=== PATIENT | female | born 1950 | race Caucasian/White ===

== ENCOUNTER 2017-04-23 09:53 | Emergency (ER) | payer MEDICARE, MEDICAID ==
--- NOTE | 2017-04-23 10:01 | Emergency Department Record ---
History of Present Illness - General Chief Complaint: Chest Pain Stated Complaint: CHEST PAIN Time Seen by Provider: 04/23/17 09:54 Source: Patient Mode of Arrival: Ambulatory Limitations: No limitations - History of Present Illness Initial Comments: 66 yo female [facility] from [facility] family [facility] with concerns about her blood pressure and recent onset of chest pain. Today's visit was a scheduled routine visit. She told her provider that she has been having the left chest pain over the last one week. She has noted the pain with activity or exertion at times. No syncope. No history of CAD. She has a history of rheumatic fever. She last saw a entertainer & comic several years ago and does not recall who they were. No pain with inspiration. The pain does not radiate to the back. PCP [facility]. Complaint: Chest pain -: Week(s) (1) Onset: During exertion, During rest Pain Location: Left chest Pain Radiation: LUE Severity: Moderate Quality: Aching Consistency: Intermittent Improves With: Rest Worsens With: Exertion Context: Other Other Symptoms: Burping Treatments Prior to Arrival: None - Related Data Allergies Allergy/AdvReac Type Severity Reaction Status Date / Time levofloxacin [From Levaquin] Allergy Severe SWELLING Verified 04/23/17 10:01 (GENERAL) bupropion HCl Allergy Intermediate HIVES Verified 04/23/17 10:01 [From Wellbutrin] Sulfa (Sulfonamide Allergy Mild NAUSEA AND Verified 04/23/17 10:01 Antibiotics) VOMITING Penicillins Allergy Unknown DIARRHEA & Verified 04/23/17 10:01 HIVES acetaminophen [From Tylenol] AdvReac Mild VOMITING Verified 04/23/17 10:01 aspirin AdvReac Mild VOMITING Verified 04/23/17 10:01 hydroxyzine HCl AdvReac Mild SHAKEY Verified 04/23/17 10:01 [From Vistaril] hydroxyzine pamoate AdvReac Mild SHAKEY Verified 04/23/17 10:01 [From Vistaril] lisinopril AdvReac Mild dizziness, Verified 04/23/17 10:01 nausea, impaired balance paroxetine HCl [From Paxil] AdvReac Mild NAUSEA Verified 04/23/17 10:01 Review of Systems Constitutional: Denies: Chills, Fever, Malaise, Weakness Eyes: Denies: Eye discharge, Eye pain, Photophobia, Vision change ENT: Denies: Congestion, Throat pain Respiratory: Reports: Dyspnea. Denies: Cough, Hemoptysis, Stridor, Wheezes Cardiovascular: Reports: Chest pain, Edema (at times, comes and goes). Denies: Arrhythmia, Palpitations, Syncope Endocrine: Denies: Polydipsia, Polyuria Gastrointestinal: Denies: Abdominal pain, Diarrhea, Nausea, Vomiting Genitourinary: Denies: Dysuria, Urgency Musculoskeletal: Denies: Arthralgia, Back pain, Joint swelling, Myalgia Skin: Denies: Bruising, Change in color, Rash Neurological: Denies: Confusion, Headache, Numbness, Weakness Psychiatric: Denies: Anxiety Hematological/Lymphatic: Denies: Blood Clots, Easy bleeding, Easy bruising, Swollen glands Past Medical History - SOCIAL HISTORY Smoking Status: Never smoker - RESPIRATORY Hx Respiratory Disorders: No - CARDIOVASCULAR Hx Cardio Disorders: No - NEURO Hx Neuro Disorders: Yes Hx of Migraines: Yes - GI Hx GI Disorders: Yes Hx Diverticulitis: Yes Hx Reflux: Yes Hx Nausea/Vomiting: Yes (nausea) Hx of Polyps: Yes - Hx Genitourinary Disorders: No - ENDOCRINE Hx Endocrine Disorders: No - MUSCULOSKELETAL Hx Musculoskeletal Disorders: No - PSYCH Hx Psych Problems: No - HEMATOLOGY/ONCOLOGY Hx Hematology/Oncology Disorders: No Family Medical History Hx Heart Disease: Father, Mother Hx HTN: Father, Mother Physical Exam - General General Appearance: Alert, Oriented x3, Cooperative, No acute distress Limitations: No limitations - Head Head exam: Normal inspection - Eye Eye exam: Normal appearance, PERRL. negative: Conjunctival injection, Periorbital swelling - ENT ENT exam: Normal exam, Mucous membranes moist Ear exam: Normal external inspection Nasal Exam: Normal inspection Mouth exam: Normal external inspection Teeth exam: Normal inspection - Neck Neck exam: Normal inspection, Full ROM. negative: Tenderness - Respiratory Respiratory exam: Normal lung sounds bilaterally. negative: Respiratory distress, Rhonchi, Stridor, Wheezes - Cardiovascular Cardiovascular Exam: Regular rate, Normal rhythm, Normal heart sounds, Systolic murmur (soft best over Aortic area) Peripheral Pulses: 2+: Radial (R), Radial (L) - GI/Abdominal GI/Abdominal exam: Soft. negative: Tenderness - Rectal Rectal exam: Deferred - exam: Deferred - Extremities Extremities exam: Normal inspection, Full ROM, Normal capillary refill. negative: Pedal edema, Tenderness - Back Back exam: Reports: Normal inspection, Full ROM. Denies: Muscle spasm, Rash noted, Tenderness - Neurological Neurological exam: Alert, Normal gait, Oriented X3 - Psychiatric Psychiatric exam: Normal affect, Normal mood - Skin Skin exam: Dry, Intact, Normal color, Warm Course - Reevaluation(s) Reevaluation #1: EKG 09:55 NSR LBBB rate of 78, [place] L, ST changes CW LBBBB no changes form 07/1404/23/17 10:00 Refused Aspirin due to allergy 04/23/17 11:19 Reevaluation #2: The CBC,CMP,Troponin, and BNP were negative. 04/23/17 10:38 04/23/17 11:08 CXR report reviewed. NAD. No changes from prior . Recommend FU CXR 1 year. Pt informed Reevaluation #3: I discussed the results with the patient. I recommended admission for cardiology consultation and ECHO given her chest pain, history of RF. She refuses admission. She has an appointment tomorrow that she is not willing to miss. I explained there is serious risk with leaving without completed testing. Risks such as , injury, heart attack, other causes of chest pain that can still be evaluated. She declined and understands my concerns. I explained signing out AMA. She agrees with signing out AMA. I spoke with her PCP Carla Flores. She did place a STAT referral for out patient cardiology follow up. The patient is in agreement with this plan but still unwilling to be admitted today under any conditions. 04/23/17 11:14 Medical Decision Making - Lab Data Result diagrams: 04/23/17 10:04 04/23/17 10:04 Disposition Disposition: Discharge Clinical Impression: Chest pain Qualifiers: Chest pain type: unspecified Qualified Code(s): R07.9 - Chest pain, unspecified Disposition: Against Medical Advice Condition: (2) Stable Instructions: Chest Pain (ED), Against Medical Advice (ED) Additional Instructions: Return or go to an ER immediately if you have any return of chest pain You are being referred for a Cardiology Consult as soon as possible Return anytime to complete your testing You are signing out AMA today Forms: Patient Portal Access Time of Disposition: 11:19 Quality - Quality Measures Quality Measures: N/A - Blood Pressure Screening View Details: Yes Blood Pressure Classification: Hypertensive Reading Systolic Measurement: 197 Diastolic Measurement: 112 Screening for High Blood Pressure: < Pre-Hypertensive BP, F/U Documented > [ [id number]] Pre-Hypertensive Follow-up Interventions: Referral to alternative/primary care provider.
[2017-04-23 10:08] LABS: BASO % 0.3 % (0-6); EOS % 0.9 % (0-6); GRAN % 60.3 % (47-80); HEMATOCRIT 41.1 % (35.0-47.0); HEMOGLOBIN 13.4 gm/dl (11.6-16.0); LYMPH % 29.5 % (16-45); MEAN CELL VOLUME 89.5 fl (81-97); MEAN CORPUSCULAR HEMOGLOBIN 29.2 pg (27-33); MEAN CORPUSCULAR HGB CONC 32.6 g/dl (32-36); MEAN PLATELET VOLUME 9.7 fl (7.4-10.4); PLATELET COUNT 273 K/uL (130-400); RED BLOOD COUNT 4.59 M/uL (3.80-5.40); RED CELL DISTRIBUTION WIDTH 13.8 % (11.5-14.5); WHITE BLOOD COUNT W/O DIFF 7.5 K/uL (4.2-12.2)
[2017-04-23 10:22] LABS: ALB/GLOB RATIO 1.3 (1.1-1.8); ALBUMIN 4.5 gm/dL (3.5-5.0); ALKALINE PHOSPHATASE 78 U/L (38-126); ALT/SGPT 38 U/L (9-52); ANION GAP 12.9 (7-16); AST/SGOT 20 U/L (14-36); BILIRUBIN,TOTAL 0.89 mg/dL (0.2-1.3); BLOOD UREA NITROGEN 11 mg/dL (7-17); CARBON DIOXIDE 27.1 mmol/L (22-30); CREATINE PHOSPHOKINASE 53 U/L (30-135); CREATININE 0.8 mg/dL (0.52-1.04); EST GLOMERULAR FILTRATION RATE > 60 ml/min; GLUCOSE,RANDOM 100 mg/dL (70-110); INR 0.98; PARTIAL THROMBOPLASTIN TIME 25.1 SECONDS (24.5-39.1); PROTHROMBIN TIME (PATIENT) 10.6 SECONDS (9.5-12.1); TOTAL PROTEIN 8.1 gm/dL (6.3-8.2)
[2017-04-23 10:34] LABS: CKMB 0.3 ug/L (0-6)
[2017-04-23 10:35] LABS: TROPONIN I < 0.012 ng/mL (0.00-0.034)
--- NOTE | 2017-04-24 10:32 | RADIOLOGY REPORT ---
EXAM: CHEST, TWO VIEWS HISTORY: LEFT SIDED CHEST PAIN FOR A WEEK. TECHNIQUE: PA and lateral views of the chest were obtained. Comparison: PA chest 04/17/16. FINDINGS: The heart size is within normal limits. The lungs appear expanded with no acute infiltrate seen. No pleural effusion or pneumothorax evident. Previously noted small granuloma at the right base is probably still present, but obscured by the dome of the hemidiaphragm on the current study. Small pleural based nodular density left apex medially also present previously, but partially obscured by the medial end of the left clavicle on the prior exam. IMPRESSION: STABLE HEART SIZE. NO ACUTE INFILTRATE EVIDENT. SMALL GRANULOMA RIGHT BASE BEFORE AND SMALL PLEURAL BASED NODULAR DENSITY LEFT APEX MEDIALLY ALSO PRESENT PREVIOUSLY. RECOMMEND FOLLOW-UP CHEST X-RAY IN A YEAR'S TIME. JOB NUMBER: [id number] MTDD
== END 2017-04-23 11:33 | disposition left against medical advice (07) ==
LOC: ER 09:53
DX: R07.89 Other chest pain (principal)
CPT/HCPCS: 71020; 80053; 82550; 82553; 83880; 84484; 85025; 85610; 85730; 93005; 93010; 99284

== ENCOUNTER 2019-03-01 10:35 | Observation (INO) | payer MEDICARE, MEDICAID ==
[2019-03-01] MEDS ORDERED: ASPIRIN 81 MG CHEWABLE TABLET PO ONE (10:48)
[2019-03-01] MEDS ORDERED: NITROGLYCERIN 0.4MG SL TABLET #25 BTL SL ONE (10:49)
--- NOTE | 2019-03-01 10:51 | Emergency Department Record ---
History of Present Illness - General Chief Complaint: Chest Pain Stated Complaint: CHEST PAIN Time Seen by Provider: 03/01/19 10:48 Source: Patient Mode of Arrival: Ambulatory Limitations: No limitations - History of Present Illness Initial Comments: Pt to the ED with from home. Pt with complaint of pain to the left chest under breast without radiation. Some associated TREY and nausea. Pt states "I have a hiatal hernia too so its hard to tell". Pt has HTN which has been difficult to control as she is intolerant of many medications. Has been on Hydrolizine 25mg for past weeks and thinks this is causing her pain. Pt states the pain is constant and 5-7 of 10. Now in ED is at a 3 of 10. Woke with the pain this morning but has had pain over past days. Yesterday walking at [employer] and had a lot of pain that required her to sit and rest. She did not go to the doctor at that time. Has had stress test in [place], [place] last year. No Cardiac Cath. Onset/Timin -: Hour(s) Onset: During rest Quality: Heaviness Consistency: Constant Improves With: Nothing Worsens With: Nothing Treatments Prior to Arrival: None - Related Data Home Medications Medication Instructions Recorded Confirmed Last Taken Atenolol 50 mg PO DAILY 03/01/19 03/01/19 03/01/19 Hydrochlorothiazide [Hctz] 25 mg PO BID 03/01/19 03/01/19 02/28/19 Allergies Allergy/AdvReac Type Severity Reaction Status Date / Time levofloxacin [From Levaquin] Allergy Severe SWELLING Verified 03/01/19 10:49 (GENERAL) bupropion HCl Allergy Intermediate HIVES Verified 03/01/19 10:49 [From Wellbutrin] Penicillins Allergy Unknown DIARRHEA & Verified 03/01/19 10:49 HIVES acetaminophen [From Tylenol] AdvReac Mild VOMITING Verified 03/01/19 10:49 aspirin AdvReac Mild VOMITING Verified 03/01/19 10:49 hydroxyzine HCl AdvReac Mild SHAKEY Verified 03/01/19 10:49 [From Vistaril] hydroxyzine pamoate AdvReac Mild SHAKEY Verified 03/01/19 10:49 [From Vistaril] lisinopril AdvReac Mild dizziness, Verified 03/01/19 10:49 nausea, impaired balance paroxetine HCl [From Paxil] AdvReac Mild NAUSEA Verified 03/01/19 10:49 Sulfa (Sulfonamide AdvReac Mild NAUSEA AND Verified 03/01/19 10:49 Antibiotics) VOMITING Travel Screening - Travel/Exposure Within Last 30 Days Have you traveled within the last 30 days?: No Review of Systems Constitutional: Reports: Chills, Fever, Weakness Eyes: Reports: Eye discharge, Photophobia ENT: Reports: Congestion, Ear pain Respiratory: Reports: Cough, Hemoptysis Cardiovascular: Reports: As per HPI, Chest pain. Denies: Arrhythmia, Palpitations, Syncope Endocrine: Reports: Fatigue. Denies: Polyuria Gastrointestinal: Reports: As per HPI, Nausea, Vomiting. Denies: Abdominal pain, Diarrhea Skin: Denies: Rash Neurological: Denies: Headache, Weakness Psychiatric: Denies: Anxiety Hematological/Lymphatic: Denies: Anemia Past Medical History - SOCIAL HISTORY Smoking Status: Never smoker - RESPIRATORY Hx Respiratory Disorders: No - CARDIOVASCULAR Hx Cardio Disorders: No - NEURO Hx Neuro Disorders: Yes Hx of Migraines: Yes - GI Hx GI Disorders: Yes Hx Diverticulitis: Yes Hx Reflux: Yes Hx Nausea/Vomiting: Yes (nausea) Hx of Polyps: Yes - Hx Genitourinary Disorders: No - ENDOCRINE Hx Endocrine Disorders: No - MUSCULOSKELETAL Hx Musculoskeletal Disorders: No - PSYCH Hx Psych Problems: No - HEMATOLOGY/ONCOLOGY Hx Hematology/Oncology Disorders: No Family Medical History Hx Heart Disease: Father, Mother Hx HTN: Father, Mother Physical Exam - General General Appearance: Alert, Oriented x3, Cooperative, No acute distress - Head Head exam: Normal inspection - Eye Eye exam: Normal appearance, PERRL - ENT ENT exam: Normal exam, Mucous membranes moist, Normal external ear exam, Normal orophraynx, TM's normal bilaterally - Neck Neck exam: Normal inspection - Respiratory Respiratory exam: Normal lung sounds bilaterally. negative: Respiratory distress - Cardiovascular Cardiovascular Exam: Regular rate, Normal rhythm, Normal heart sounds. negative: Tachycardia Peripheral Pulses: 2+: Radial (R), Radial (L) - GI/Abdominal GI/Abdominal exam: Soft, Normal bowel sounds. negative: Tenderness - Extremities Extremities exam: Normal inspection, Full ROM, Normal capillary refill. negative: Tenderness - Back Back exam: Reports: Normal inspection, Full ROM. Denies: Muscle spasm, Rash noted, Tenderness - Neurological Neurological exam: Alert, Normal gait, Oriented X3 - Psychiatric Psychiatric exam: Normal affect, Normal mood - Skin Skin exam: Normal color. negative: Rash Course Vital Signs 03/01/19 10:44 Temperature 98.8 F Pulse Rate 79 Respiratory 18 Rate Blood Pressure 179/109 Pulse Ox 97 - Reevaluation(s) Reevaluation #1: 03/01/19 11:16 Pt with pain relief to 0 of 10 after on NTG SL. BP much improved also. Waiting on labs, Reevaluation #2: 03/01/19 12:39 Pt with no CP since NTG x 1. Labs and Trop neg. Resting with BP 130/84. Discussed admission with serial enzymes and cardio eval in AM. Marlyn Olivares [employer] accepts. Pt and agree. Procedures - EKG Initial Date: 03/01/19 Time: 10:51 EKG: No Acute Changes EKG Detail: ANTIONETTE Medical Decision Making - Lab Data Result diagrams: 03/01/19 11:00 03/01/19 11:00 Disposition Disposition: Admit Clinical Impression: Chest pain, Hypertension Disposition: Still a Patient at [facility] Decision to Admit: Admit from ER Decision to Admit Date: 03/01/19 Decision to Admit Time: 12:58 Condition: (3) Guarded Forms: Patient Portal Access Time of Disposition: 12:39 Quality - Quality Measures Quality Measures: N/A - Blood Pressure Screening Does Patient Have Any of the Following: Active Dx of HTN Blood Pressure Classification: Hypertensive Reading Systolic Measurement: 179 Diastolic Measurement: 109 Screening for High Blood Pressure: Patient Exclusion, Hx of HTN [G9744]
[2019-03-01 11:31] LABS: ABSOLUTE NEUTROPHIL COUNT 5.98; BASO % 0.2 % (0-6); EOS % 0.6 % (0-6); GRAN % 69.3 % (47-80); HEMATOCRIT 42.4 % (35.0-47.0); HEMOGLOBIN 13.5 gm/dl (11.6-16.0); LYMPH % 22.2 % (16-45); MEAN CELL VOLUME 92.4 fl (81-97); MEAN CORPUSCULAR HEMOGLOBIN 29.4 pg (27-33); MEAN CORPUSCULAR HGB CONC 31.8 g/dl (32-36); MEAN PLATELET VOLUME 10.2 fl (7.4-10.4); MONO % 7.7 % (0-9); PLATELET COUNT 292 K/uL (130-400); RED BLOOD COUNT 4.59 M/uL (3.80-5.40); RED CELL DISTRIBUTION WIDTH 13.6 % (11.5-14.5); WHITE BLOOD COUNT W/O DIFF 8.6 K/uL (4.2-12.2)
[2019-03-01 11:44] LABS: BLOOD UREA NITROGEN 13 mg/dL (8-23); CREATININE 0.8 mg/dL (0.5-0.9); EST GLOMERULAR FILTRATION RATE > 60 mL/min
[2019-03-01 11:45] LABS: PARTIAL THROMBOPLASTIN TIME 24.5 SECONDS (24.5-39.1); PROTHROMBIN TIME (PATIENT) 10.2 SECONDS (9.5-12.1)
[2019-03-01 11:47] LABS: GLUCOSE,RANDOM 126 mg/dL (74-109)
[2019-03-01] MEDS ORDERED: PANTOPRAZOLE SODIUM 40 MG TABLET PO SCH (13:00)
[2019-03-01] MEDS ORDERED: ACETAMINOPHEN 500 MG TABLET PO PRN (13:58)
[2019-03-01] MEDS ORDERED: NITROGLYCERIN 0.4MG SL TABLET #25 BTL SL PRN (13:58)
[2019-03-01] MEDS ORDERED: ACETAMINOPHEN 325 MG TAB PO PRN (13:58)
[2019-03-01] MEDS ORDERED: ATENOLOL 25 MG TABLET PO SCH (22:00)
[2019-03-01] MEDS ORDERED: HYDROCHLOROTHIAZIDE 25 MG TABLET PO SCH (22:00)
[2019-03-02] MEDS ORDERED: PANTOPRAZOLE SODIUM 40 MG TABLET PO SCH (07:00)
--- NOTE | 2019-03-02 08:44 | RADIOLOGY REPORT ---
EXAM: CHEST, TWO VIEWS HISTORY: MIDLINE CHEST PAIN FOR ONE WEEK. TECHNIQUE: Two views of the chest were obtained. Comparison: 04/23/17. FINDINGS: The cardiomediastinal silhouette is stable. The lungs and pleural spaces are clear. The previously described nodule within the medial left lung apex is not well seen on this exam. IMPRESSION: NO ACUTE CARDIOPULMONARY ABNORMALITY. JOB NUMBER: [id number] MTDD
[2019-03-02] MEDS ORDERED: ATENOLOL 50 MG TABLET PO SCH ×2 (10:00)
[2019-03-02] MEDS ORDERED: HYDROCHLOROTHIAZIDE 25 MG TABLET PO SCH (10:00)
[2019-03-02] MEDS ORDERED: ASPIRIN 81 MG TABEC PO SCH (10:00)
--- NOTE | 2019-03-02 12:11 | History & Physical ---
History of Present Illness - Date of Service Date of Service for History & Physical: 03/02/19 - History of Present Illness Admitting Diagnosis: Chest pain History of Present Illness: Pt to the ED with from home. Pt with complaint of pain to the left chest under breast without radiation. Some associated TREY and nausea. Pt states "I have a hiatal hernia too so its hard to tell". Pt has HTN which has been difficult to control as she is intolerant of many medications. Has been on Hydrolizine 25mg for past weeks and thinks this is causing her pain. Pt states the pain is constant and 5-7 of 10. Now in ED is at a 3 of 10. Woke with the p ain this morning but has had pain over past days. Yesterday walking at [employer] and had a lot of pain that required her to sit and rest. She did not go to the doctor at that time. Has had stress test in [place], [place] last year. No Cardiac Cath. Other hx includes migraines, GERD, diverticulitis and polyps. In the ED, her BP was elevated at 179/109, HR 79, RR 18, 97% on room air. Labs and trop neg. Pain was relieved with 10mg nitro sl and BP improved to 130/84. Pt. was admitted for obs, cardiology consult, monitoring of serial enzymes. 03/02/19: Pt. is resting in bed, she currently denies any CP. Planning for cardiology consult today. PCP: Travel Screening - Travel/Exposure Within Last 30 Days Have you traveled within the last 30 days?: No - Travel/Exposure Within Last Year Have you traveled outside the [place] in the last year?: No - Additonal Travel Details Have you been exposed to anyone with a communicable illness?: No Review of Systems Constitutional: Reports: Chills, Fever, Weakness Eyes: Reports: Eye discharge, Photophobia ENT: Reports: Congestion, Ear pain Respiratory: Reports: Cough, Hemoptysis Cardiovascular: Reports: As per HPI, Chest pain. Denies: Arrhythmia, Palpitations, Syncope Endocrine: Reports: Fatigue. Denies: Polyuria Gastrointestinal: Reports: As per HPI, Nausea, Vomiting. Denies: Abdominal pain, Diarrhea Skin: Denies: Rash Neurological: Denies: Headache, Weakness Psychiatric: Denies: Anxiety Hematological/Lymphatic: Denies: Anemia Past Medical History - SOCIAL HISTORY Smoking Status: Never smoker Alcohol Use: None Drug Use: None - RESPIRATORY Hx Respiratory Disorders: No Hx Pneumonia: Yes (2006) - CARDIOVASCULAR Hx Cardio Disorders: No Hx Hypertension: Yes - NEURO Hx Neuro Disorders: Yes Hx of Migraines: Yes - GI Hx GI Disorders: Yes Hx Diverticulitis: Yes Hx Reflux: Yes Hx Nausea/Vomiting: Yes (nausea) Hx of Polyps: Yes - Hx Genitourinary Disorders: No - ENDOCRINE Hx Endocrine Disorders: No - MUSCULOSKELETAL Hx Musculoskeletal Disorders: No Hx Arthritis: Yes (left hip) - PSYCH Hx Psych Problems: No - HEMATOLOGY/ONCOLOGY Hx Hematology/Oncology Disorders: No Family Medical History Any Significant Family History?: Yes Hx Dementia: Mother Hx Heart Disease: Father, Mother Hx HTN: Father, Mother H&P Meds/Allergies - Allergies Allergies: Allergies Allergy/AdvReac Type Severity Reaction Status Date / Time levofloxacin [From Levaquin] Allergy Severe SWELLING Verified 03/01/19 10:49 (GENERAL) bupropion HCl Allergy Intermediate HIVES Verified 03/01/19 10:49 [From Wellbutrin] Penicillins Allergy Unknown DIARRHEA & Verified 03/01/19 10:49 HIVES acetaminophen [From Tylenol] AdvReac Mild VOMITING Verified 03/01/19 10:49 aspirin AdvReac Mild VOMITING Verified 03/01/19 10:49 hydroxyzine HCl AdvReac Mild SHAKEY Verified 03/01/19 10:49 [From Vistaril] hydroxyzine pamoate AdvReac Mild SHAKEY Verified 03/01/19 10:49 [From Vistaril] lisinopril AdvReac Mild dizziness, Verified 03/01/19 10:49 nausea, impaired balance paroxetine HCl [From Paxil] AdvReac Mild NAUSEA Verified 03/01/19 10:49 Sulfa (Sulfonamide AdvReac Mild NAUSEA AND Verified 03/01/19 10:49 Antibiotics) VOMITING - Home Medications Home Medications Medication Instructions Recorded Confirmed Last Taken Atenolol 50 mg PO DAILY 03/01/19 03/01/19 03/01/19 Atenolol 25 mg PO QHS 03/02/19 03/02/19 Unknown - Active Medications Active Medications: Current Medications Acetaminophen (Tylenol 325mg) 650 mg PO Q4H PRN PRN Reason: PAIN - MILD(1-4)/FEVER Last Admin: 03/01/19 18:04 Dose: 650 mg Documented by: Aspirin (Ecotrin (Ec)) 81 mg PO DAILY [facility] Last Admin: 03/02/19 09:41 Dose: 81 mg Documented by: Atenolol (Tenormin) 50 mg PO DAILY [facility] Last Admin: 03/02/19 09:41 Dose: 50 mg Documented by: Atenolol (Tenormin) 25 mg PO QHS [facility] Last Admin: 03/01/19 22:13 Dose: 25 mg Documented by: Nitroglycerin (Nitrostat 0.4mg) 0.4 mg SL Q5MIN PRN PRN Reason: CHEST PAIN [facility] Admin: 03/02/19 06:11 Dose: 40 mg Documented by: Physical Exam - Vital Signs Vital Signs: Vital Signs - Last 24 Hrs Temp Pulse Pulse Resp BP Pulse Ox 03/02/19 07:34 97.9 F 55 L 16 165/78 95 03/02/19 04:00 97.9 F 56 L 16 159/75 99 03/02/19 00:00 98.2 F 61 14 137/85 97 03/01/19 21:00 58 L 61 16 03/01/19 20:01 99.1 F 61 16 145/74 95 03/01/19 16:00 97.9 F 54 L 16 134/67 95 03/01/19 13:58 98.1 F 63 16 148/81 97 03/01/19 12:47 57 L 18 132/76 97 - General General Appearance: Alert, Oriented x3, Cooperative, No acute distress Limitations: No limitations - Head Head exam: Normal inspection - Eye Eye exam: Normal appearance, PERRL - ENT ENT exam: Normal exam, Mucous membranes moist, Normal external ear exam, Normal orophraynx, TM's normal bilaterally - Neck Neck exam: Normal inspection - Respiratory Respiratory exam: Normal lung sounds bilaterally. negative: Respiratory distress - Cardiovascular Cardiovascular Exam: Regular rate, Normal rhythm, Normal heart sounds. negative: Tachycardia Peripheral Pulses: 2+: Radial (R), Radial (L) - GI/Abdominal GI/Abdominal exam: Soft, Normal bowel sounds. negative: Tenderness - Extremities Extremities exam: Normal inspection, Full ROM, Normal capillary refill. negative: Tenderness - Back Back exam: Reports: Normal inspection, Full ROM. Denies: Muscle spasm, Rash noted, Tenderness - Neurological Neurological exam: Alert, Normal gait, Oriented X3 - Psychiatric Psychiatric exam: Normal affect, Normal mood - Skin Skin exam: Normal color. negative: Rash Results - Labs Result Diagrams: 03/01/19 11:00 03/01/19 11:00 Labs Last 24 Hours: Laboratory Results - last 24 hr 03/01/19 03/02/19 20:20 03:05 Troponin T < 0.010 < 0.010 VTE H&P Assessment - Risk for VTE Risk for VTE: Yes Risk Level: Low Risk Assessment Date: 03/02/19 Risk Assessment Time: 12:12 VTE Orders Placed or Will Be Placed: Yes AMI H&P Plan - EKG Initial Date: 03/01/19 Time: 10:51 EKG: No Acute Changes EKG Detail: LBBB Plan - Detailed Diagnosis and Plan (1) Chest pain Current Visit: Yes Status: Acute Base Code: R07.9 - CHEST PAIN, UNSPECIFIED Comment: 03/02/19 -No CP since nitro sl in ED -cardiology consult today -NSR with BBB on tele, VSS (2) Hypertension Current Visit: Yes Status: Acute Base Code: I10 - ESSENTIAL (PRIMARY) HYPERTENSION Comment: 03/02/19: -Continue home HTN meds: tenormin 50mg qhs (3) At risk for deep venous thrombosis Current Visit: Yes Status: Acute Base Code: Z91.89 - OTH PERSONAL RISK FACTORS, NOT ELSEWHERE CLASSIFIED Comment: 03/02/19: -ASA 81mg daily -will order lovenox 40mg SC qhs if hospitalization greater than 24 hours (4) Full code status Current Visit: Yes Status: Acute Base Code: Z78.9 - OTHER SPECIFIED HEALTH STATUS Comment: 03/02/19: -Pt. is a full code
--- NOTE | 2019-03-02 12:48 | Discharge Summary ---
Providers Discharge Summary Date: 03/02/19 Date of admission: 03/01/19 13:40 Expected Date of Discharge: 03/02/19 Attending physician: ALBERT GRANADO Consults: Consult Orders 03/02/19 07:42 Consult - Cardiology NOW Consulting Provider: LILLIAN STEWARD Physician Instructions: Reason For Exam: chest pain Does pt have current station master?: Other Physical Exam - Vital Signs Vital Signs: Vital Signs - Last 24 Hrs Temp Pulse Pulse Resp BP Pulse Ox 03/02/19 07:34 97.9 F 55 L 16 165/78 95 03/02/19 04:00 97.9 F 56 L 16 159/75 99 03/02/19 00:00 98.2 F 61 14 137/85 97 03/01/19 21:00 58 L 61 16 03/01/19 20:01 99.1 F 61 16 145/74 95 03/01/19 16:00 97.9 F 54 L 16 134/67 95 03/01/19 13:58 98.1 F 63 16 148/81 97 03/01/19 12:47 57 L 18 132/76 97 - General General Appearance: Alert, Oriented x3, Cooperative, No acute distress Limitations: No limitations - Head Head exam: Normal inspection - Eye Eye exam: Normal appearance, PERRL - ENT ENT exam: Normal exam, Mucous membranes moist, Normal external ear exam, Normal orophraynx, TM's normal bilaterally - Neck Neck exam: Normal inspection - Respiratory Respiratory exam: Normal lung sounds bilaterally. negative: Respiratory distress - Cardiovascular Cardiovascular Exam: Regular rate, Normal rhythm, Normal heart sounds. negative: Tachycardia Peripheral Pulses: 2+: Radial (R), Radial (L) - GI/Abdominal GI/Abdominal exam: Soft, Normal bowel sounds. negative: Tenderness - Extremities Extremities exam: Normal inspection, Full ROM, Normal capillary refill. negative: Tenderness - Back Back exam: Reports: Normal inspection, Full ROM. Denies: Muscle spasm, Rash noted, Tenderness - Neurological Neurological exam: Alert, Normal gait, Oriented X3 - Psychiatric Psychiatric exam: Normal affect, Normal mood - Skin Skin exam: Normal color. negative: Rash Hospitalization - Hospitalization Admission Diagnosis: Chest pain - Problem List/Discharge Diagnosis (1) Chest pain Current Visit: Yes Status: Acute Base Code: R07.9 - CHEST PAIN, UNSPECIFIED Comment: 03/02/19 -No CP since nitro sl in ED -cardiology consult today -NSR with BBB on tele, VSS (2) Hypertension Current Visit: Yes Status: Acute Base Code: I10 - ESSENTIAL (PRIMARY) HYPERTENSION Comment: 03/02/19: -Continue home HTN meds: tenormin 50mg qhs (3) At risk for deep venous thrombosis Current Visit: Yes Status: Acute Base Code: Z91.89 - OTH PERSONAL RISK FACTORS, NOT ELSEWHERE CLASSIFIED Comment: 03/02/19: -ASA 81mg daily -will order lovenox 40mg SC qhs if hospitalization greater than 24 hours (4) Full code status Current Visit: Yes Status: Acute Base Code: Z78.9 - OTHER SPECIFIED HEALTH STATUS Comment: 03/02/19: -Pt. is a full code - Hospitalization Course Disposition: Home, Self-Care Hospital Course: Pt to the ED with from home. Pt with complaint of pain to the left chest under breast without radiation. Some associated TREY and nausea. Pt states "I have a hiatal hernia too so its hard to tell". Pt has HTN which has been difficult to control as she is intolerant of many medications. Has been on Hydrolizine 25mg for past weeks and thinks this is causing her pain. Pt states the pain is constant and 5-7 of 10. Now in ED is at a 3 of 10. Woke with the pain this morning but has had pain over past days. Yesterday walking at [employer] and had a lot of pain that required her to sit and rest. She did not go to the doctor at that time. Has had stress test in [place], [place] last year. No Cardiac Cath. Other hx includes migraines, GERD, diverticulitis and polyps. In the ED, her BP was elevated at 179/109, HR 79, RR 18, 97% on room air. Labs and trop neg. Pain was relieved with 10mg nitro sl and BP improved to 130/84. Pt. was admitted for obs, cardiology consult, monitoring of serial enzymes. 03/02/19: Pt. is resting in bed, she currently denies any CP. Planning for cardiology consult today. 1243: Pt. was seen by cardiology PA today, recommend f/u OP with pt's own station master, she will provide prescription for cardiolyte stress test. Plan to continue tenormin only. PCP: Procedures: Imaging and X-Rays 03/01/19 10:48 CHEST 2 VIEWS [RAD] Stat Cardiology Procedures 03/01/19 10:48 EKG NOW 03/01/19 13:58 Animal Science Instructor .Continuous Animal Science Instructor NOW EKG QDX2@0600 Abnormal Labs: Abnormal Lab Results 03/01/19 03/01/19 Range/Units 11:00 11:00 MCHC 31.8 L (32-36) g/dl Random Glucose 126 H (74-109) mg/dL Condition at Discharge: (2) Stable Discharge Diagnosis: Chest pain VTE Discharge VTE Reason For No Overlap Therapy: Not Indicated Discharge Medications - Discharge Medications Home Medications: Ambulatory Orders Atenolol 50 mg PO DAILY 03/01/19 [Last Taken 03/01/19] Aspirin Enteric-Coated [Ecotrin (EC)] 81 mg PO DAILY tabec 03/02/19 [Last Taken Unknown] Atenolol 25 mg PO QHS 03/02/19 [Last Taken Unknown] Discharge Plan - Discharge Instructions Activity at Discharge: Increase Activity as Tolerated Diet at Discharge: Advance to Usual Diet Quality Measures - Quality Measures Quality Measures: Advance Directives, Documentation of Current Medications in Medical Record, Elder Maltreatment Screen and Follow-Up Plan, Screening for High Blood Pressure and F/U Documented - Current Medications Quality Measure: Measure #130: Documentation of Current Medications Documentation of Current Medications: <Current Medications Documented/Reviewed> [G8427] - Blood Pressure Screening Quality Measure: Screening for High Blood Pressure and Follow-Up Documented Does Patient Have Any of the Following: Active Dx of HTN Blood Pressure Classification: Hypertensive Reading Systolic Measurement: 179 Diastolic Measurement: 109 Screening for High Blood Pressure: Patient Exclusion, Hx of HTN [G9744] - Advance Directives Quality Measure: Measure #47: Care Plan Advance Directives Established: No Advance Directives Information Provided To Patient: Declined Advance Directives on File: No Living Will: No Power of Data Engineer: No Advance Care Planning: <Care Plan/Decision Maker Documented; Discussed & Documented> [1123F] - Elder Abuse Suspicion Index Screening: Elder Abuse Suspicion Index Screening Rely on people for bathing, dressing, shopping, banking, etc: No Prevented from getting food, clothes, medication, etc: No Made to feel shamed or threatened by someone: No Forced to sign papers or use money against will: No Feel afraid, touched in ways not wanted or hurt physically: No Poor eye contact, withdrawn, malnourished, cuts or bruises: No Screening Result: Negative result EASI Reference Information: Jerry PALACIO, Stevenson Azevedo, Asif Lopez, Norm Lopez.Development and validation of a tool to assist physicians identification of elder abuse: The Elder Abuse Suspicion Index (EASI ). Journal of Elder Abuse and Neglect, 2008; 20 (3): 276-300. - Elder Maltreatment Screen Quality Measures: Elder Maltreatment Screen and Follow-Up Plan Elder Maltreatment Screen: <Negative, No Follow-Up Plan Required> [G8734]
--- NOTE | 2019-03-02 12:55 | Consult ---
Consult Order Detail - Reason for Consult Consult Date: 03/02/19 (Cardiology ) - Chief Complaint Chief Complaint: CHEST PAIN,HYPERTENSION HPI Consult - History of Present Illness Admitting Diagnosis: Chest pain History of Present Illness: Ms. Burns is a 68-year-old female with past medical history of hypertension and hiatal hernia. She also has a family history of coronary artery disease with her dad requiring bypass surgery and her mother requiring valve replacement. She presented to [facility] with complaint of chest pain. She reports that about 2 weeks ago she had a sinus infection and her blood pressure was elevated. She was started on hydralazine to help with better blood pressure control. After that she started developing intermittent chest pains. The chest pain she describes is burning and sharp. The pain was mostly constant but aggravated with physical activity. On one occasion she did have an episode of shortness of breath and nausea with exertion thta resolved with rest. She has also been having intermittent headaches. She reports her blood pressure being elevated with systolic in the 160s.. When she came to the ED her chest pain has been constant for the last couple of days. It was relieved with sublingual nitroglycerin. Her troponin has been negative x3. D-dimer WNL. EKG demonstrated a left bundle branch block which she reports as old for the last couple of years. No acute cardiopulmonary process on chest x-ray. She reports satisfactory stress test 1 year ago. She follows with a brick paving checker in [place]. Since admission she has had no further episodes of chest pain. Her blood pressure is currently well controlled at 137/85. Cardiology has been consulted for further evaluation. ROS Constitutional: Reports: Chills, Fever, Weakness. Denies: Night sweats Eyes: Denies: Eye discharge, Vision change - ENT ENT: Reports: Congestion, Ear pain. Denies: Throat pain - Respiratory Respiratory: Reports: Cough. Denies: Wheezes - Cardiovascular Cardiovascular: Reports: As per HPI, Chest pain, Dyspnea on exertion. Denies: Arrhythmia, Edema, Palpitations, Paroxysmal nocturnal dyspnea, Syncope - Endocrine Endocrine: Reports: Fatigue. Denies: Polyuria - Gastrointestinal Gastrointestinal: Reports: As per HPI, Nausea. Denies: Abdominal pain, Diarrhea - Skin Skin: Denies: Rash - Neurological Neurological: Reports: Headache, Weakness - Psychiatric Psychiatric: Denies: Anxiety - Hematological/Lymphatic Hematological/Lymphatic: Denies: Anemia Past Medical History - SOCIAL HISTORY Smoking Status: Never smoker Alcohol Use: None Drug Use: None - RESPIRATORY Hx Respiratory Disorders: No Hx Pneumonia: Yes (2006) - CARDIOVASCULAR Hx Cardio Disorders: Yes Hx Chest Pain: Yes (satisfactory stress 1 yr ago ) Hx Hypertension: Yes - NEURO Hx Neuro Disorders: Yes Hx of Migraines: Yes - GI Hx GI Disorders: Yes Hx Diverticulitis: Yes Hx Reflux: Yes Hx Nausea/Vomiting: Yes (nausea) Hx of Polyps: Yes - Hx Genitourinary Disorders: No - ENDOCRINE Hx Endocrine Disorders: No - MUSCULOSKELETAL Hx Musculoskeletal Disorders: Yes Hx Arthritis: Yes (left hip) - PSYCH Hx Psych Problems: No - HEMATOLOGY/ONCOLOGY Hx Hematology/Oncology Disorders: No Family Medical History Any Significant Family History?: Yes Hx Dementia: Mother Hx Heart Disease: Father, Mother Hx HTN: Father, Mother H&P Meds - Home Medications and Allergies Home Medications Medication Instructions Recorded Confirmed Last Taken Atenolol 50 mg PO DAILY 03/01/19 03/01/19 03/01/19 Atenolol 25 mg PO QHS 03/02/19 03/02/19 Unknown Previous Rx's Medication Instructions Recorded Aspirin Enteric-Coated [Ecotrin 81 mg PO DAILY tabec 03/02/19 (EC)] Allergies Allergy/AdvReac Type Severity Reaction Status Date / Time levofloxacin [From Levaquin] Allergy Severe SWELLING Verified 03/01/19 10:49 (GENERAL) bupropion HCl Allergy Intermediate HIVES Verified 03/01/19 10:49 [From Wellbutrin] Penicillins Allergy Unknown DIARRHEA & Verified 03/01/19 10:49 HIVES acetaminophen [From Tylenol] AdvReac Mild VOMITING Verified 03/01/19 10:49 aspirin AdvReac Mild VOMITING Verified 03/01/19 10:49 hydroxyzine HCl AdvReac Mild SHAKEY Verified 03/01/19 10:49 [From Vistaril] hydroxyzine pamoate AdvReac Mild SHAKEY Verified 03/01/19 10:49 [From Vistaril] lisinopril AdvReac Mild dizziness, Verified 03/01/19 10:49 nausea, impaired balance paroxetine HCl [From Paxil] AdvReac Mild NAUSEA Verified 03/01/19 10:49 Sulfa (Sulfonamide AdvReac Mild NAUSEA AND Verified 03/01/19 10:49 Antibiotics) VOMITING Physical Exam - Vital Signs Vital Signs: Vital Signs - Last 24 Hrs Temp Pulse Pulse Resp BP Pulse Ox 03/02/19 07:34 97.9 F 55 L 16 165/78 95 03/02/19 04:00 97.9 F 56 L 16 159/75 99 03/02/19 00:00 98.2 F 61 14 137/85 97 03/01/19 21:00 58 L 61 16 03/01/19 20:01 99.1 F 61 16 145/74 95 03/01/19 16:00 97.9 F 54 L 16 134/67 95 03/01/19 13:58 98.1 F 63 16 148/81 97 - General General Appearance: Alert, Oriented x3, Cooperative, No acute distress Limitations: No limitations - Head Head exam: Atraumatic, Normocephalic, Normal inspection - Eye Eye exam: Normal appearance, PERRL. negative: Conjunctival injection - ENT ENT exam: Normal exam, Mucous membranes moist, Normal external ear exam, Normal orophraynx - Neck Neck exam: Normal inspection - Respiratory Respiratory exam: Normal lung sounds bilaterally. negative: Accessory muscle use, Chest wall tenderness, Rales, Respiratory distress, Rhonchi, Wheezes - Cardiovascular Cardiovascular Exam: Regular rate, Normal rhythm, Normal heart sounds. negative: Diastolic murmur, S3, S4, Systolic murmur, Tachycardia Peripheral Pulses: 2+: Radial (R), Radial (L) - GI/Abdominal GI/Abdominal exam: Soft, Normal bowel sounds. negative: Tenderness - Extremities Extremities exam: Normal inspection, Full ROM, Normal capillary refill. negativ e: Tenderness - Back Back exam: Reports: Normal inspection, Full ROM. Denies: Muscle spasm, Rash noted, Tenderness - Neurological Neurological exam: Alert, Normal gait, Oriented X3 - Psychiatric Psychiatric exam: Normal affect, Normal mood - Skin Skin exam: Normal color. negative: Rash Results - Labs Result Diagrams: 03/01/19 11:00 03/01/19 11:00 Labs Last 24 Hours: Laboratory Results - last 24 hr 03/01/19 03/02/19 20:20 03:05 Troponin T < 0.010 < 0.010 - Imaging and Cardiology CXR Status: Report reviewed (no acute cardiopulmonary process ) EKG Status: Image reviewed (sinus rhythm with known LBBB) Assessment and Plan - Assessment and Plan (1) Chest pain Current Visit: Yes Status: Acute Base Code: R07.9 - CHEST PAIN, UNSPECIFIED Comment: 03/02/19 -No CP since nitro sl in ED -cardiology consult today -NSR with BBB on tele, VSS (2) Hypertension Current Visit: Yes Status: Acute Base Code: I10 - ESSENTIAL (PRIMARY) HYPERTENSION Comment: 03/02/19: -Continue home HTN meds: tenormin 50mg qhs - Disposition Disposition: Patient is a 68-year-old female with past medical history of hypertension. She follows with a brick paving checker in [place]. She presented to [facility] with complaint of chest pain. She had a sinus infection 2 weeks ago and her blood pressure was elevated. She was then started on hydralazine and discontinued her atenolol. Since then she has been having intermittent chest pains. Her blood pressures have also been elevated with systolic in the 160s. She also reports occasional nausea and shortness of breath with exertion. Upon arrival to the ED she was given a sublingual nitroglycerin which relieved her chest pain. Previously her chest pain was constant, sharp, and burning. She has had no recurrence of chest pain. Troponin has been within normal limits x3. D-di slime was within normal limits. EKG demonstrated sinus rhythm with a left bundle branch block which is reportedly old for her. No acute cardiopulmonary process on chest x-ray. She reports a satisfactory stress test 1 year ago. Blood pressure is well controlled at 137/85. At this time patient is stable for discharge. She will follow-up with her brick paving checker with a stress test in the next 1 to 2 weeks. She will continue atenolol and discontinue hydralazine. Continue aspirin 81 mg daily.
== END 2019-03-02 14:15 | disposition home or self-care (01) ==
LOC: ER 10:35 → MEDSURG 13:40
PROVIDERS: ADMIT Internal Medicine; ATTEND Internal Medicine
DX: R07.9 Chest pain, unspecified (principal); I10 Essential (primary) hypertension; K57.90 Diverticulosis of intestine, part unspecified, without perforation or abscess without bleeding; K44.9 Diaphragmatic hernia without obstruction or gangrene; M16.12 Unilateral primary osteoarthritis, left hip
CPT/HCPCS: 71046; 80048; 84484; 85025; 85379; 85610; 85730; 93005; 93010; 99220; 99285